=== PATIENT | female | born 1985 | race Caucasian/White ===

== ENCOUNTER → 2016-06-02 | Day surgery (SDC) | payer OTHER ==
[~2016-06-02] MED LIST: AMITRIPTYLINE H50 MG PO; DISCONTINUED MED; INDERAL20 MG PO; NEURONTIN100 MG PO; PHENERGAN PO; VICODIN 5/1 TAB 5/50 PO
--- NOTE | ~2016-06-02 | CR127 ---
[facility] A Service of [facility] RADIOLOGY TEXT RESULTS PATIENT: JAUN PATEL LOCATION: [facility] : 85 UNIT #: [id number] AGE: [address]: Gerardo Mao DPM SEX: F ORDER DR: [id number] [facility] [place] [address] [place], [place] [address] [id number] O MR#: [id number] Acc #: [id number] NAME: JAUN PATEL : 1985 SEX: F STUDY DATE/TIME: 06/02/2016 12:30 UNIT: [facility] ROOM: STUDY DESCRIPTION: CR Foot Complete Min 3 View Rt Attending Physician: Gerardo Mao D.P.M. Referring Physician: Gerardo Mao D.P.M. Ordering Physician: Gerardo Mao D.P.M. Primary Care Physician: Gee Washington M.D. MEDICAL IMAGING REPORT This report is preliminary unless electronic signature is present EXAM Right foot 3 views history supplied is right foot pain. Postop right foot surgery today. FINDINGS 3 views of the right foot are obtained. The patient has no old studies at this institution. There has apparently been fixation of the calcaneus and cuboid with 2 orthopedic dianne. CONCLUSION Postop changes of prior arthrodesis of the cuboid and calcaneus. Dictated by... Mo Moffett M.D. THIS IS AN ELECTRONICALLY VERIFIED REPORT Mo Moffett M.D. at 06/03/2016 7:54 AM Vanessa TD: 06/02/2016 13:24 JOB #: [id number] MEDICAL IMAGING REPORT COPY
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
== END | disposition home or self-care (01) ==
LOC: CSUR 08:08
DX: S93.331A Other subluxation of right foot, initial encounter (principal); M21.6X1 Other acquired deformities of right foot; M19.071 Primary osteoarthritis, right ankle and foot; Z88.0 Allergy status to penicillin
CPT/HCPCS: 73630; 84703; C1713; J2250; J2405; J2795; J3010